=== PATIENT | female | born 1970 | race Caucasian/White ===

== ENCOUNTER → 2017-03-19 | Outpatient (CLI) | payer BC ==
[~2017-03-19] MED LIST: ALBUTEROL17 GM INH; ALLERGY10 M1 PO; ANTIVERT PO; ATENOLOL PO; B/P MED; COMBIVENT INH14.7 GM INH; DICLOFENAC PO; FLONASE16 GM; HYCODAN60 ML 5MG/ PO; IBUPROFEN PO; LEVAQUIN PO; MEDROL DOSEPAK4 MG PO; MEDROL PO; MOBIC PO; NEURONTIN600 MG PO; PLAQUENIL200 MG PO; PROPRANOLOL PO; ROBITUSSIN COU118 ML PO; SYMBICORT INH; SYNTHROID PO; TUSS DM PO
--- NOTE | ~2017-03-19 | BD1 ---
[facility] A Service of [facility] & [facility] RADIOLOGY TEXT RESULTS PATIENT: LEIGH SIMONS LOCATION: [facility] : 74 UNIT #: [id number] AGE: [address]: Carlos Horn MD SEX: F ORDER DR: [id number] [address] [address] [id number] O MR#: [id number] Acc #: [id number] NAME: LEIGH SIMONS : 1970 SEX: F STUDY DATE/TIME: 03/19/2017 9:42 UNIT: [facility] ROOM: STUDY DESCRIPTION: Dexa Bone Dens 1+ Site Attending Physician: Carlos Horn M.D. Referring Physician: Carlos Horn M.D. Ordering Physician: Carlos Horn M.D. Primary Care Physician: Carlos Horn M.D. MEDICAL IMAGING REPORT This report is preliminary unless electronic signature is present. EXAM DXA scan, 03/19/2017 HISTORY Status post menopause with no hormone replacement therapy. Osteopenia. Hyperthyroidism levothyroxine use for 9 years. Arthritis. Steroid use. Smoking history for 23 years. Family history of osteoporosis in mother. FINDINGS Bone mineral density in the lumbar spine from L1-L4 was 1.362 g/cm2 which is 1.5 standard deviations above the mean when compared to the young adult reference population which is within the range of normal. This is 1.4 standard deviations above the mean when compared to the age-matched population. Bone mineral density in the left femoral neck was 1.125 g/cm2 which is 0.6 standard deviations above the mean when compared to the young adult reference population which is within the range of normal. This is 1.1 standard deviations above the mean when compared to the age-matched population. Bone mineral density in the right femoral neck was 1.022 g/cm2 which is 0.1 standard deviations below the mean when compared to the young adult reference population which is within the range of normal. This is 0.4 standard deviations above the mean when compared to the age-matched population. IMPRESSION Bone mineral density in the lumbar spine and the hips bilaterally within the range of normal. Dictated by... [facility]. [facility] A Service of [facility] & [facility] RADIOLOGY TEXT RESULTS PATIENT: LEIGH SIMONS LOCATION: [facility] : 74 UNIT #: [id number] AGE: [address]: Carlos Horn MD SEX: F ORDER DR: Calixto Anglin M.D. THIS IS AN ELECTRONICALLY VERIFIED REPORT Calixto Anglin M.D. at 03/20/2017 7:46 AM Maximo TD: 03/19/2017 11:50 JOB #: [id number] MEDICAL IMAGING REPORT Page 1 of 1
== END | disposition home or self-care (01) ==
LOC: SRAD 09:18
DX: Z13.820 Encounter for screening for osteoporosis (principal); Z86.2 Personal history of diseases of the blood and blood-forming organs and certain disorders involving the immune mechanism; Z79.52 Long term (current) use of systemic steroids; Z78.0 Asymptomatic menopausal state
CPT/HCPCS: 77080